=== PATIENT | male | born 1955 | race Caucasian/White ===

== ENCOUNTER 2018-12-10 22:21 | Inpatient (IN) | payer MEDICARE, MEDICAID ==
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
--- NOTE | 2018-12-10 23:29 | RADIOLOGY REPORT (SQ) ---
EXAM DESCRIPTION: XR CHEST 1 VIEW COMPLETED DATE/TME: 12/10/2018 22:47 CLINICAL HISTORY: 63 years, Male, AMS COMPARISON: None. NUMBER OF VIEWS: 1 TECHNIQUE: Portable chest LIMITATIONS: None. FINDINGS: Heart size normal. Osteopenia. COPD. Lungs clear. No pneumothorax IMPRESSION: COPD. Lungs clear copyright 2010 [employer]- All Rights Reserved
--- NOTE | 2018-12-10 23:31 | RADIOLOGY REPORT (SQ) ---
EXAM DESCRIPTION: XR KNEE 4 OR MORE VIEWS COMPLETED DATE/TME: 12/10/2018 22:48 CLINICAL HISTORY: 63 years, Male, right knee pain COMPARISON: None. NUMBER OF VIEWS: 4 TECHNIQUE: 4 view right knee LIMITATIONS: None. FINDINGS: Osteopenia. Advanced tricompartmental degenerative change. Chondrocalcinosis. No evidence for acute fracture or dislocation. Healed fracture deformity of the proximal fibula. No joint effusion IMPRESSION: Osteopenia with advanced degenerative change copyright 2010 [employer]- All Rights Reserved
--- NOTE | 2018-12-10 23:33 | RADIOLOGY REPORT (SQ) ---
EXAM DESCRIPTION: CT HEAD WITHOUT IV CONTRAST COMPLETED DATE/TME: 12/10/2018 22:47 CLINICAL HISTORY: 63 years, Male, AMS COMPARISON: 01/20/2014 CT TECHNIQUE: 191 Images stored on PACS. All CT scanners at this facility use dose modulation, iterative reconstruction, and/or weight based dosing when appropriate to reduce radiation dose to as low as reasonably achievable (ALARA). [facility]: Dose Right [facility]: CareDose [facility]: Dose Right [facility]: Teradose 4D [facility]: [employer] LIMITATIONS: None. FINDINGS: The globes are intact. The paranasal sinuses and mastoid air cells are unremarkable. Postsurgical changes with craniotomy defects in the right temporal parietal regions. Underlying encephalomalacia. No evidence for acute intracranial hemorrhage. CT is limited for evaluation of acute infarct. No CT evidence for large or territorial acute infarct. No mass or midline shift. Diffuse atrophy. Old left cerebellar infarct. Pronounced ventriculomegaly, as before. IMPRESSION: Negative for acute intracranial abnormality. Postsurgical changes with extensive encephalomalacia and ventriculomegaly, as before. Old infarct left cerebellar hemisphere. TECHNICAL DOCUMENTATION: Quality ID # 436: Final reports with documentation of one or more dose reduction techniques (e.g., Automated exposure control, adjustment of the mA and/or kV according to patient size, use of iterative reconstruction technique) copyright 2011 [employer]- All Rights Reserved
[2018-12-10 23:36] LABS: ABSOLUTE MONOCYTES (AUTO) 2.1 10^3/uL (0.1-1.4); ABSOLUTE NEUT (AUTO) 9.3 10^3/uL (1.7-8.2); BASOPHILS % (AUTO) 0.2 % (0-2); EOSINOPHILS % (AUTO) 0.2 % (0-6); HEMATOCRIT 44.1 % (37.9-51.0); HEMOGLOBIN 14.8 g/dL (13.5-17.0); MEAN CORPUSCULAR HEMOGLOBIN 33.3 pg (27.0-33.4); MEAN CORPUSCULAR HGB CONC 33.5 g/dL (32.0-36.0); MEAN CORPUSCULAR VOLUME 99 fl (80-97); MONOCYTES % (AUTO) 14.5 % (3-13); PLATELET COUNT 230 10^3/uL (150-450); RED BLOOD COUNT 4.45 10^6/uL (4.35-5.55); RED CELL DISTRIBUTION WIDTH 12.9 % (11.5-14.0); SEGMENTED NEUTROPHILS % (AUTO) 64.1 % (42-78); TOTAL CELLS COUNTED % (AUTO) 100 %; WHITE BLOOD COUNT 14.5 10^3/uL (4.0-10.5)
[2018-12-10 23:58] LABS: ALANINE AMINOTRANSFERASE 41 U/L (21-72); ALBUMIN 4.2 g/dL (3.5-5.0); ALKALINE PHOSPHATASE 108 U/L (38-126); ANION GAP 13 (5-19); ASPARTATE AMINO TRANSFERASE 20 U/L (17-59); BILIRUBIN,DIRECT 0.3 mg/dL (0.0-0.4); BILIRUBIN,TOTAL 0.5 mg/dL (0.2-1.3); BLOOD UREA NITROGEN 19 mg/dL (7-20); CALCIUM 9.6 mg/dL (8.4-10.2); CARBON DIOXIDE 26 mmol/L (22-30); CHLORIDE 101 mmol/L (98-107); GLUCOSE 115 mg/dL (75-110); POTASSIUM 3.8 mmol/L (3.6-5.0); SODIUM 139.7 mmol/L (137-145); TOTAL PROTEIN 7.5 g/dL (6.3-8.2)
[2018-12-11 00:02] LABS: ALCOHOL < 10 mg/dL (NONE DETECTED)
[2018-12-11 01:48] LABS: APPEARANCE,URINE CLEAR; BILIRUBIN,URINE NEGATIVE (NEGATIVE); COLOR,URINE YELLOW; GLUCOSE, URINE NEGATIVE (NEGATIVE); KETONES,URINE NEGATIVE (NEGATIVE); LEUKOCYTE ESTERASE,URINE NEGATIVE (NEGATIVE); NITRITE,URINE NEGATIVE (NEGATIVE); PROTEIN,URINE NEGATIVE (NEGATIVE); URINE SPECIFIC GRAVITY 1.023; UROBILINOGEN,URINE NEGATIVE mg/dL (<2.0)
[2018-12-11 02:04] LABS: URINE AMPHETAMINES SCREEN NEGATIVE; URINE BARBITURATES SCREEN NEGATIVE; URINE BENZODIAZEPINES SCREEN NEGATIVE; URINE COCAINE SCREEN NEGATIVE; URINE MARIJUANA (THC) SCREEN NEGATIVE; URINE METHADONE SCREEN NEGATIVE; URINE PHENCYCLIDINE SCREEN NEGATIVE
[2018-12-11] MEDS ORDERED: NORMAL SALINE 1000 ML 1,000 ML IV ONE (02:19)
[2018-12-11 04:41] LABS: VENOUS BLOOD BASE EXCESS -0.6 mmol/L; VENOUS BLOOD HCO3 23.7 mmol/L (20-32); VENOUS BLOOD PCO2 38.2 mmHg (35-63); VENOUS BLOOD PH 7.41 (7.30-7.42)
[2018-12-11] MEDS ORDERED: ONDANSETRON 4 MG TAB.RAPDIS PO PRN (08:22)
[2018-12-11] MEDS ORDERED: ACETAMINOPHEN 325 MG TABLET PO PRN (08:22)
--- NOTE | 2018-12-11 09:06 | EKG REPORT ---
SEVERITY:- ABNORMAL ECG - SINUS TACHYCARDIA NONSPECIFIC ST-T CHANGES ANTERIOR AND INFERIOR LEADS IVCD CONSIDER OLD TRUE POST ME. : Confirmed by: Mega Yeager MD 11-Dec-2018 09:05:31
[2018-12-11] MEDS: ENOXAPARIN SODIUM INJ 30 MG/0.3 ML DISP.SYRIN SUBCUT SCH (10:58)
[2018-12-11] MEDS: FAMOTIDINE 20 MG TABLET PO SCH ×2 (10:58→22:02)
[2018-12-11] MEDS: NORMAL SALINE 1000 ML 1,000 ML IV PRN (11:00)
[2018-12-11 14:32] LABS: CARBAMAZEPINE < 2.0 ug/mL (4.0-12.0); PHENYTOIN 4.1 ug/mL (10.0-20.0)
[2018-12-11 21:44] LABS: APPEARANCE,URINE CLEAR; BILIRUBIN,URINE NEGATIVE (NEGATIVE); COLOR,URINE YELLOW; GLUCOSE, URINE NEGATIVE (NEGATIVE); KETONES,URINE 20 mg/dL (NEGATIVE); LEUKOCYTE ESTERASE,URINE NEGATIVE (NEGATIVE); NITRITE,URINE NEGATIVE (NEGATIVE); PROTEIN,URINE 30 mg/dL (NEGATIVE)
[2018-12-12] MEDS: NORMAL SALINE 1000 ML 1,000 ML IV PRN ×3 (00:02→23:45)
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
[2018-12-12 05:22] LABS: HEMATOCRIT 39.2 % (37.9-51.0); HEMOGLOBIN 13.3 g/dL (13.5-17.0); MEAN CORPUSCULAR HEMOGLOBIN 33.2 pg (27.0-33.4); MEAN CORPUSCULAR VOLUME 98 fl (80-97); PLATELET COUNT 225 10^3/uL (150-450); RED BLOOD COUNT 4.01 10^6/uL (4.35-5.55); RED CELL DISTRIBUTION WIDTH 12.6 % (11.5-14.0); WHITE BLOOD COUNT 12.7 10^3/uL (4.0-10.5)
[2018-12-12 05:44] LABS: ALANINE AMINOTRANSFERASE 29 U/L (21-72); ALBUMIN 3.4 g/dL (3.5-5.0); ALKALINE PHOSPHATASE 83 U/L (38-126); ANION GAP 13 (5-19); ASPARTATE AMINO TRANSFERASE 22 U/L (17-59); BILIRUBIN,DIRECT 0.3 mg/dL (0.0-0.4); BILIRUBIN,TOTAL 0.7 mg/dL (0.2-1.3); BLOOD UREA NITROGEN 12 mg/dL (7-20); CALCIUM 8.5 mg/dL (8.4-10.2); CARBON DIOXIDE 22 mmol/L (22-30); CHLORIDE 102 mmol/L (98-107); CHOLESTEROL 105.42 mg/dL (0-200); GLUCOSE 101 mg/dL (75-110); PHOSPHORUS 3.3 mg/dL (2.5-4.5); POTASSIUM 3.8 mmol/L (3.6-5.0); SODIUM 137.1 mmol/L (137-145); TOTAL PROTEIN 6.2 g/dL (6.3-8.2); TRIGLYCERIDES 68 mg/dL (<150)
[2018-12-12 05:55] LABS: DIRECT LDL 57 mg/dL (<100)
--- NOTE | 2018-12-12 08:44 | RADIOLOGY REPORT (SQ) ---
EXAM DESCRIPTION: CAROTID DOPPLER COMPLETED DATE/TIME: 12/11/2018 7:25 pm REASON FOR STUDY: eval for stenosis or blockage COMPARISON: None. TECHNIQUE: Grayscale ultrasound, Doppler velocity and spectra, and color Doppler images acquired of the extra-cranial carotid and vertebral arteries. Images stored on PACS. LIMITATIONS: None. FINDINGS: RIGHT CAROTID CCA Velocities: Within normal limits. ICA Velocities Peak systolic 0.63 m/s. End diastolic 0.15 m/s. Proximal ICA/CCA peak systolic ratio 0.6. Spectra normal. No significant plaque. LEFT CAROTID CCA Velocities: Within normal limits. ICA Velocities Peak systolic 1.22 m/s. End diastolic 0.3 m/s. Proximal ICA/CCA peak systolic ratio 0.9. Spectra normal. No significant plaque. VERTEBRAL ARTERIES: Antegrade flow. Normal waveforms. SUBCLAVIAN ARTERIES: No finding. OTHER: No other significant finding. IMPRESSION: NO HEMODYNAMICALLY SIGNIFICANT STENOSIS. COMMENT: Quality ID #195: Velocity criteria are extrapolated from the diameter data as defined by t he Society of Radiologists in Ultrasound Consensus Conference. Radiology 2003: 229; 340-346. TECHNICAL DOCUMENTATION: JOB ID: [id number] [employer]- All Rights Reserved Reading location - IP/workstation name: [email or web address]
[2018-12-12] MEDS ORDERED: IBUPROFEN 600 MG TABLET PO PRN (10:13)
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
[2018-12-12] MEDS: PHENYTOIN SODIUM EXTENDED 100 MG CAPSULE PO SCH ×2 (11:03→21:06)
[2018-12-12] MEDS: FAMOTIDINE 20 MG TABLET PO SCH ×2 (11:03→21:04)
[2018-12-12] MEDS: ENOXAPARIN SODIUM INJ 30 MG/0.3 ML DISP.SYRIN SUBCUT SCH (11:03)
[2018-12-12] MEDS: ZONISAMIDE 100 MG CAPSULE PO SCH (21:06)
[2018-12-13] MEDS: PHENYTOIN SODIUM EXTENDED 100 MG CAPSULE PO SCH ×2 (10:10→21:26)
[2018-12-13] MEDS: ENOXAPARIN SODIUM INJ 30 MG/0.3 ML DISP.SYRIN SUBCUT SCH (10:10)
[2018-12-13] MEDS: FAMOTIDINE 20 MG TABLET PO SCH ×2 (10:10→21:26)
--- NOTE | 2018-12-13 14:12 | PDOC PROGRESS REPORT ---
Subjective Progress Note for:: 12/13/18 Subjective:: no clear answers to questions. Dysarthria. Reason For Visit: ALTERED MENTAL STATUS Physical Exam Vital Signs: Temp Pulse Resp BP Pulse Ox 99.2 F 85 16 143/73 H 96 12/13/18 07:07 12/13/18 07:07 12/13/18 07:07 12/13/18 07:07 12/13/18 07:07 Intake & Output 12/12/18 12/13/18 12/14/18 07:59 07:59 07:59 Intake Total 1176 2276 Output Total 200 Balance 976 2276 Weight 164 lb 14.492 oz 172 lb 13.478 oz General appearance: PRESENT: no acute distress Eye exam: ABSENT: conjunctival injection, scleral icterus Respiratory exam: PRESENT: clear to auscultation [place] Cardiovascular exam: ABSENT: diastolic murmur, irregular rhythm, systolic murmur GI/Abdominal exam: ABSENT: distended, mass, organolmegaly, tenderness Extremities exam: ABSENT: pedal edema Neurological exam: PRESENT: altered, reflexes normal - no L knee jerk. R tender., abnormal gait - PT said unsafe for standing., CN II-XII grossly intact - OK cranial nerves [id number]. Cant hear finger rub.. 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 Lungs clear copyright 2010 [employer]- All Rights Reserved Head CT 12/10/18 22:47 IMPRESSION: Negative for acute intracranial abnormality. Postsurgical changes with extensive encephalomalacia and ventriculomegaly, as before. Old infarct left cerebellar hemisphere. TECHNICAL DOCUMENTATION: Quality ID # 436: Final reports with documentation of one or more dose reduction techniques (e.g., Automated exposure control, adjustment of the mA and/or kV according to patient size, use of iterative reconstruction technique) copyright 2010 [employer]- All Rights Reserved Knee X-Ray 12/10/18 22:48 IMPRESSION: Osteopenia with advanced degenerative change copyright 2010 [employer]- All Rights Reserved Carotid Doppler Study 12/11/18 08:33 IMPRESSION: NO HEMODYNAMICALLY SIGNIFICANT STENOSIS. Assessment & Plan - Diagnosis (1) Absence epileptic syndrome, not intractable, without status epilepticus Is this a current diagnosis for this admission?: Yes Plan: I suspect he has had a cva: an abrupt decrease in ability to walk. No hemiparesi s. Speech is worse. He was ataxic and disoriented the only time I saw him in the office. He used a cane and had failed [address] Frey manages his seizures. (2) Traumatic subarachnoid hemorrhage with loss of consciousness greater than 24 hours with return to pre-existing conscious level, sequela Is this a current diagnosis for this admission?: Yes Plan: It would be hard to see a cva with all the old encephalomalacia. Doppler was negative. MRI wont be done with old clips present. 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 - Inpatient Certification Medical Necessity: Significant Comorbidiites Make Outpatient Treatment Too Risky, Need Close Monitoring Due to Risk of Patient Decompensation, Need For Continuous Telemetry Monitoring, Risk of Complication if Not Cared For in Hospital, Risk of Diagnosis Which Will Require Inpatient Eval/Care/Monitoring
[2018-12-13 15:36] LABS: HEPATITIS A AB IGM Negative (Negative); HEPATITIS B CORE AB IGM Negative (Negative); HEPATITS B SURFACE ANTIGEN Negative (Negative)
[2018-12-13] MEDS: NORMAL SALINE 1000 ML 1,000 ML IV PRN (17:22)
[2018-12-13] MEDS: ZONISAMIDE 100 MG CAPSULE PO SCH (21:26)
[2018-12-14] MEDS: NORMAL SALINE 1000 ML 1,000 ML IV PRN (05:17)
--- NOTE | 2018-12-14 07:48 | PDOC PROGRESS REPORT ---
Subjective Progress Note for:: 12/14/18 Subjective:: disoriented Reason For Visit: ALTERED MENTAL STATUS Physical Exam Vital Signs: Temp Pulse Resp BP Pulse Ox 98.2 F 76 20 127/77 H 100 12/14/18 03:27 12/14/18 07:00 12/14/18 03:27 12/14/18 03:27 12/14/18 03:27 Intake & Output 12/12/18 12/13/18 12/14/18 07:59 07:59 07:59 Intake Total 1176 2276 2337 Output Total 200 Balance 976 2276 2337 Weight 164 lb 14.492 oz 172 lb 13.478 oz 167 lb 15.876 oz General appearance: PRESENT: no acute distress Respiratory exam: PRESENT: clear to auscultation [place] Cardiovascular exam: ABSENT: diastolic murmur, irregular rhythm, systolic murmur GI/Abdominal exam: ABSENT: mass, organolmegaly, tenderness Extremities exam: ABSENT: pedal edema Neurological exam: ABSENT: oriented to time, motor sensory deficit Psychiatric exam: PRESENT: agitated - at times. Swung at nurse. Now restrained. Results Laboratory Results: 12/12/18 04:21 12/12/18 04:21 12/11/18 21:20 Catheterized Urine Urine Culture - Final NO GROWTH 2 DAYS 12/10/18 23:30 NT-Pro-B Natriuret Pep 253 Impressions: Chest X-Ray 12/10/18 22:47 IMPRESSION: COPD. Lungs clear copyright 2010 [employer]- All Rights Reserved Head CT 12/10/18 22:47 IMPRESSION: Negative for acute intracranial abnormality. Postsurgical changes with extensive encephalomalacia and ventriculomegaly, as before. Old infarct left cerebellar hemisphere. TECHNICAL DOCUMENTATION: Quality ID # 436: Final reports with documentation of one or more dose reduction techniques (e.g., Automated exposure control, adjustment of the mA and/or kV according to patient size, use of iterative reconstruction technique) copyright 2010 [employer]- All Rights Reserved Knee X-Ray 12/10/18 22:48 IMPRESSION: Osteopenia with advanced degenerative change copyright 2010 [employer]- All Rights Reserved Carotid Doppler Study 12/11/18 08:33 IMPRESSION: NO HEMODYNAMICALLY SIGNIFICANT STENOSIS. 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 Restrained incontinent unable to sit. 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
[2018-12-14] MEDS: PHENYTOIN SODIUM EXTENDED 100 MG CAPSULE PO SCH ×2 (09:13→22:12)
[2018-12-14] MEDS: FAMOTIDINE 20 MG TABLET PO SCH ×2 (09:13→22:12)
[2018-12-14] MEDS: ENOXAPARIN SODIUM INJ 30 MG/0.3 ML DISP.SYRIN SUBCUT SCH (09:14)
[2018-12-14 09:30] LABS: HEPATITIS C VIRUS ANTIBODY >11.0 s/co ratio (0.0-0.9)
[2018-12-14] MEDS: ZONISAMIDE 100 MG CAPSULE PO SCH (22:12)
--- NOTE | 2018-12-15 07:25 | PDOC TRANSFER SUMMARY ---
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 Is this a current diagnosis for this admission?: Yes - Transfer Medications Home Medications: Phenytoin Sodium Extended [Dilantin 100 mg Capsule.er] 100 mg PO Q12 12/11/18 Zonisamide [Zonegran] 100 mg PO QHS 12/11/18 Transfer Medications: Phenytoin Sodium (Dilantin 100 Mg Capsule.Er) 100 mg PO Q12 [facility]1983 Stop: 01/11/19 10:59 Last Admin: 12/14/18 22:12 Dose: 100 mg Documented by: Zonisamide (Zonegran 100 Mg Capsule) 100 mg PO QHS [facility], [facility]1983 Stop: 01/11/19 21:59 Last Admin: 12/14/18 22:12 Dose: 100 mg Documented by: - Allergies Allergies/Adverse Reactions: No Known Allergies Allergy (Unverified 09/06/13 23:15) - Diet/Activity Discharge Diet: Regular Discharge Activity: Supervised Activity Hospital Course Hospital Course: His chronic disabilities were worse on admission and stayed that way. CT could not distinguish a new cva to explain his recent decline from his marked encephalomalacia from prior subdural and cerebellar infarct. Doppler was negative. Metal brain clips prevented mri. PT said standing activities were unsafe. He could not sit. He had dual incontinence. He was combative at times and required restraints. Dr Frey's antiepleptics were continued. Physical Exam Vital Signs: Temp Pulse Resp BP Pulse Ox 98.7 F 85 20 141/85 H 96 12/15/18 04:21 12/15/18 04:21 12/15/18 04:21 12/15/18 04:21 12/15/18 04:21 Intake & Output 12/13/18 12/14/18 12/15/18 07:59 07:59 07:59 Intake Total 2276 2337 1370 Balance 2276 2337 1370 Weight 172 lb 13.478 oz 167 lb 15.876 oz General appearance: PRESENT: no acute distress Respiratory exam: PRESENT: clear to auscultation [place] Cardiovascular exam: ABSENT: diastolic murmur, irregular rhythm, systolic murmur GI/Abdominal exam: ABSENT: mass, organolmegaly, tenderness Extremities exam: ABSENT: pedal edema Neurological exam: PRESENT: altered. ABSENT: oriented to time, oriented to situation Psychiatric exam: PRESENT: appropriate affect Results Laboratory Results: Labs- Last Values WBC 12.7 10^3/uL (4.0-10.5) H 12/12/18 04:21 RBC 4.01 10^6/uL (4.35-5.55) L 12/12/18 04:21 Hgb 13.3 g/dL (13.5-17.0) L 12/12/18 04:21 Hct 39.2 % (37.9-51.0) 12/12/18 04:21 MCV 98 fl (80-97) H 12/12/18 04:21 MCH 33.2 pg (27.0-33.4) 12/12/18 04:21 MCHC 34.0 g/dL (32.0-36.0) 12/12/18 04:21 RDW 12.6 % (11.5-14.0) 12/12/18 04:21 Plt Count 225 10^3/uL (150-450) 12/12/18 04:21 Seg Neutrophils % 64.1 % (42-78) 12/10/18 23:30 Lymphocytes % 21.0 % (13-45) 12/10/18 23:30 Monocytes % 14.5 % (3-13) H 12/10/18 23:30 Eosinophils % 0.2 % (0-6) 12/10/18 23:30 Basophils % 0.2 % (0-2) 12/10/18 23:30 Absolute Neutrophils 9.3 10^3/uL (1.7-8.2) H 12/10/18 23:30 Absolute Lymphocytes 3.0 10^3/uL (0.5-4.7) 12/10/18 23:30 Absolute Monocytes 2.1 10^3/uL (0.1-1.4) H 12/10/18 23:30 Absolute Eosinophils 0.0 10^3/uL (0.0-0.6) 12/10/18 23:30 Absolute Basophils 0.0 10^3/uL (0.0-0.2) 12/10/18 23:30 VBG pH 7.41 (7.30-7.42) 12/11/18 04:33 VBG pCO2 38.2 mmHg (35-63) 12/11/18 04:33 VBG HCO3 23.7 mmol/L (20-32) 12/11/18 04:33 VBG Base Excess -0.6 mmol/L 12/11/18 04:33 Sodium 137.1 mmol/L (137-145) 12/12/18 04:21 Potassium 3.8 mmol/L (3.6-5.0) 12/12/18 04:21 Chloride 102 mmol/L (98-107) 12/12/18 04:21 Carbon Dioxide 22 mmol/L (22-30) 12/12/18 04:21 Anion Gap 13 (5-19) 12/12/18 04:21 BUN 12 mg/dL (7-20) 12/12/18 04:21 Creatinine 0.65 mg/dL (0.52-1.25) 12/12/18 04:21 Est GFR ( Amer) > 60 (>60) 12/12/18 04:21 Est GFR (Non-Af Amer) > 60 (>60) 12/12/18 04:21 Glucose 101 mg/dL (75-110) 12/12/18 04:21 POC Glucose 96 mg/dL (70-110) 12/12/18 11:33 Calcium 8.5 mg/dL (8.4-10.2) 12/12/18 04:21 Phosphorus 3.3 mg/dL (2.5-4.5) 12/12/18 04:21 Magnesium 1.8 mg/dL (1.6-2.3) 12/12/18 04:21 Total Bilirubin 0.7 mg/dL (0.2-1.3) 12/12/18 04:21 Direct Bilirubin 0.3 mg/dL (0.0-0.4) 12/12/18 04:21 Neonat Total Bilirubin Not Reportable 12/12/18 04:21 Neonat Direct Bilirubin Not Reportable 12/12/18 04:21 Neonat Indirect Bili Not Reportable 12/12/18 04:21 AST 22 U/L (17-59) 12/12/18 04:21 ALT 29 U/L (21-72) 12/12/18 04:21 Alkaline Phosphatase 83 U/L (38-126) 12/12/18 04:21 Ammonia < 8.7 umol/L (9-33) L 12/12/18 11:57 NT-Pro-B Natriuret Pep 253 pg/mL (5-900) 12/10/18 23:30 Total Protein 6.2 g/dL (6.3-8.2) L 12/12/18 04:21 Albumin 3.4 g/dL (3.5-5.0) L 12/12/18 04:21 Triglycerides 68 mg/dL (<150) 12/12/18 04:21 Cholesterol 105.42 mg/dL (0-200) 12/12/18 04:21 LDL Cholesterol Direct 57 mg/dL (<100) 12/12/18 04:21 VLDL Cholesterol 14.0 mg/dL (10-31) 12/12/18 04:21 HDL Cholesterol 39 mg/dL (>40) L 12/12/18 04:21 TSH 1.66 uIU/mL (0.47-4.68) 12/12/18 04:21 Urine Color YELLOW 12/11/18 21:20 Urine Appearance CLEAR 12/11/18 21:20 Urine pH 6.0 (5.0-9.0) 12/11/18 21:20 Ur Specific [place] 1.020 12/11/18 21:20 Urine Protein 30 mg/dL (NEGATIVE) H 12/11/18 21:20 Urine Glucose (UA) NEGATIVE mg/dL (NEGATIVE) 12/11/18 21:20 Urine Ketones 20 mg/dL (NEGATIVE) H 12/11/18 21:20 Urine Blood NEGATIVE (NEGATIVE) 12/11/18 21:20 Urine Nitrite NEGATIVE (NEGATIVE) 12/11/18 21:20 Urine Bilirubin NEGATIVE (NEGATIVE) 12/11/18 21:20 Urine Urobilinogen 4.0 mg/dL (<2.0) H 12/11/18 21:20 Ur Leukocyte Esterase NEGATIVE (NEGATIVE) 12/11/18 21:20 Urine WBC (Auto) 2 /HPF 12/11/18 21:20 Urine RBC (Auto) 1 /HPF 12/11/18 21:20 U Hyaline Cast (Auto) 1 /LPF 12/11/18 00:58 Urine Bacteria (Auto) TRACE /HPF 12/11/18 21:20 Squamous Epi Cells Auto <1 /HPF 12/11/18 00:58 Urine Mucus (Auto) RARE /LPF 12/11/18 21:20 Urine Ascorbic Acid NEGATIVE (NEGATIVE) 12/11/18 21:20 Urine Opiates Screen NEGATIVE 12/11/18 00:58 Urine Methadone Screen NEGATIVE 12/11/18 00:58 Ur Barbiturates Screen NEGATIVE 12/11/18 00:58 Phenytoin 4.1 ug/mL (10.0-20.0) L 12/11/18 12:37 Carbamazepine < 2.0 ug/mL (4.0-12.0) L 12/11/18 12:37 Ur Phencyclidine Scrn NEGATIVE 12/11/18 00:58 Ur Amphetamines Screen NEGATIVE 12/11/18 00:58 U Benzodiazepines Scrn NEGATIVE 12/11/18 00:58 Urine Cocaine Screen NEGATIVE 12/11/18 00:58 U Marijuana (THC) Screen NEGATIVE 12/11/18 00:58 Serum Alcohol < 10 mg/dL (NONE DETECTED) 12/10/18 23:30 Hepatitis A IgM Ab Negative (Negative) 12/12/18 11:57 Hep Bs Antigen Negative (Negative) 12/12/18 11:57 Hep B Core IgM Ab Negative (Negative) 12/12/18 11:57 Impressions: Chest X-Ray 12/10/18 22:47 IMPRESSION: COPD. Lungs clear copyright 2010 [employer]- All Rights Reserved Head CT 12/10/18 22:47 IMPRESSION: Negative for acute intracranial abnormality. Postsurgical changes with extensive encephalomalacia and ventriculomegaly, as before. Old infarct left cerebellar hemisphere. TECHNICAL DOCUMENTATION: Quality ID # 436: Final reports with documentation of one or more dose reduction techniques (e.g., Automated exposure control, adjustment of the mA and/or kV according to patient size, use of iterative reconstruction technique) copyright 2010 [employer]- All Rights Reserved Knee X-Ray 12/10/18 22:48 IMPRESSION: Osteopenia with advanced degenerative change copyright 2010 [employer]- All Rights Reserved Carotid Doppler Study 12/11/18 08:33 IMPRESSION: NO HEMODYNAMICALLY SIGNIFICANT STENOSIS. Plan Discharge Plan: to [facility]. Needs [facility] care. I will follow.
[2018-12-15] MEDS: FAMOTIDINE 20 MG TABLET PO SCH (10:02)
[2018-12-15] MEDS: PHENYTOIN SODIUM EXTENDED 100 MG CAPSULE PO SCH (10:02)
[2018-12-15] MEDS: ENOXAPARIN SODIUM INJ 30 MG/0.3 ML DISP.SYRIN SUBCUT SCH (10:02)
[2018-12-15 13:18] VITALS: BP 109/51
--- NOTE | 2018-12-28 09:38 | DISCHARGE SUMMARY E ---
Discharge Summary NAME: TERESA CHAKRABORTY : 1955 AGE: 63Y ADMITTED: 12/11/2018 DISCHARGED: 12/15/2018 ADDENDUM: Query was what was the cause of the altered mental status? It was dementia from remote subdural hematoma and cerebellar infarct. DICTATING PHYSICIAN: SARAH BLAIR M.D. [id number] PHY#: [id number] ID: [id number] JOB#: [id number] ACCT: [id number] cc:ALANNAH CARDONA M.D., ROBERT M.D. > MTDD
== END 2018-12-15 17:40 | DRG 884 ==
LOC: ER 22:21 → UNDOADMIN 12-11 06:29 → EH 12-11 06:29 → 3W 12-11 08:04
PROVIDERS: ADMIT Emergency Medicine; ATTEND Emergency Medicine
DX: F03.90 Unspecified dementia, unspecified severity, without behavioral disturbance, psychotic disturbance, mood disturbance, and anxiety (principal); S06.6X9S Traumatic subarachnoid hemorrhage with loss of consciousness of unspecified duration, sequela; V49.9XXS Car occupant (driver) (passenger) injured in unspecified traffic accident, sequela; G40.A09 Absence epileptic syndrome, not intractable, without status epilepticus; M25.561 Pain in right knee; G89.29 Other chronic pain; R47.1 Dysarthria and anarthria; R26.2 Difficulty in walking, not elsewhere classified; G93.89 Other specified disorders of brain; Z87.820 Personal history of traumatic brain injury; Z78.1 Physical restraint status
CPT/HCPCS: 36415; 51701; 70450; 71045; 80053; 80061; 80074; 80156; 80185; 80307; 81001; 82140; 82803; 82962; 83735; 83880; 84100; 84443; 85025; 85027; 87086; 93005; 93010; 93880; 96360; 99285; J1650; J3490; J7030